=== PATIENT | female | born 1965 | race African-American/Black ===

== ENCOUNTER 2020-07-31 12:33 | Emergency (ER) | payer MEDICAID ==
[~2020-07-31] VITALS: Ht 167.6 cm; Wt 75.0 kg
[~2020-07-31 12:33] MED LIST: ATOR20TA MT; BENA1TAB16; CYAN1TAB43 PO; HYDR100T26 MT; LJ2; LOSA100T3 PO; MULT200T4 PO
[2020-07-31] MEDS ORDERED: ACETAMINOPHEN 325MG TABLET PO ONE (14:00)
[2020-07-31 14:56] VITALS: BP 158/99
== END 2020-07-31 14:58 | disposition home or self-care (01) ==
LOC: ER 12:33
DX: M79.671 Pain in right foot (principal); R07.81 Pleurodynia; I10 Essential (primary) hypertension; Z86.73 Personal history of transient ischemic attack (TIA), and cerebral infarction without residual deficits; Z79.899 Other long term (current) drug therapy; W01.0XXA Fall on same level from slipping, tripping and stumbling without subsequent striking against object, initial encounter; Y93.89 Activity, other specified; Y92.89 Other specified places as the place of occurrence of the external cause; Y99.8 Other external cause status
CPT/HCPCS: 71045; 73630; 99284

== ENCOUNTER 2022-01-25 11:41 | Emergency (ER) | payer MEDICAID ==
[~2022-01-25] VITALS: Ht 162.6 cm; Wt 80.0 kg
[~2022-01-25 11:41] MED LIST changes: +CARB-274 EACH EAR
[2022-01-25 11:54] VITALS: BP 140/117
== END 2022-01-25 15:15 | disposition home or self-care (01) ==
LOC: ER 11:41
DX: R20.2 Paresthesia of skin (principal); I10 Essential (primary) hypertension; Z85.9 Personal history of malignant neoplasm, unspecified
CPT/HCPCS: 99281

== ENCOUNTER 2024-03-30 11:47 | Emergency (ER) | payer BC, MEDICAID ==
[~2024-03-30] VITALS: Ht 154.9 cm; Wt 67.0 kg
[~2024-03-30 11:47] MED LIST changes: +HYDR100T11 MT; -HYDR100T26 MT; +LOSA-415 PO; -LOSA100T3 PO
[2024-03-30 11:55] VITALS: BP 142/79; PULSE 84; RESP 16; TEMP 98.3; O2SAT 94; O2SAT 95
== END 2024-03-30 20:00 | disposition left against medical advice (07) ==
LOC: ER 11:47
DX: R07.9 Chest pain, unspecified (principal); I10 Essential (primary) hypertension; Z86.73 Personal history of transient ischemic attack (TIA), and cerebral infarction without residual deficits; Z79.899 Other long term (current) drug therapy
CPT/HCPCS: 71045; 93005; 99283; 99285

== ENCOUNTER 2024-07-07 12:21 | Emergency (ER) | payer BC, MEDICAID ==
[~2024-07-07] VITALS: Ht 154.9 cm; Wt 67.0 kg
[2024-07-07 12:25] VITALS: O2SAT 96
[2024-07-07 12:53] VITALS: BP 151/97; PULSE 76; RESP 16; TEMP 36.8; O2SAT 95
[2024-07-07 13:09] LABS: BASOPHILS % 0.6 % (0.0-2.0); EOSINOPHILS % 1.2 % (0.0-5.0); HEMATOCRIT. 40.9 % (36.0-48.0); HEMOGLOBIN. 13.4 g/dL (12.0-16.0); LYMPHOCYTES % 35.3 % (20.0-50.0); MEAN CORPUSCULAR HEMOGLOBIN 32.4 pg (28.0-32.0); MEAN CORPUSCULAR HGB CONC 32.8 g/dL (31.0-37.0); MEAN CORPUSCULAR VOLUME 98.8 fL (81.0-99.0); MEAN PLATELET VOLUME 9.2 fl (7.4-10.4); MONOCYTES % 7.4 % (2.0-8.0); NEUTROPHILS % 55.5 % (40.0-76.0); PLATELET 140 x1000/uL (130-400); RED BLOOD CELL COUNT 4.14 mill/uL (4.2-5.4); RED CELL DISTRIBUTION WIDTH 13.2 % (11.6-14.6); WHITE BLOOD COUNT 8.6 x1000/uL (4.5-11.0)
[2024-07-07 13:16] LABS: CHLORIDE 107 mEq/L (98-107); POTASSIUM 4.5 mEq/L (3.5-5.1); SODIUM 142 mEq/L (136-145)
[2024-07-07 13:17] LABS: CARBON DIOXIDE 30 mEq/L (21-32)
[2024-07-07 13:18] LABS: CALCIUM 9.6 mg/dL (8.7-10.4)
[2024-07-07 13:22] LABS: CREATININE 0.8 mg/dL (0.6-1.0); GLUCOSE 92 mg/dL (70-105); UREA NITROGEN BLOOD < 5 mg/dL (9-23)
[2024-07-07 13:30] LABS: TROPONIN I HIGH SENSITIVITY < 4 ng/L (3.0-34)
[2024-07-07 14:17] LABS: CLARITY URINE CLEAR (CLEAR); COLOR URINE YELLOW (YELLOW); GLUCOSE URINE NEGATIVE (NEGATIVE); KETONES URINE NEGATIVE (NEGATIVE); LEUKOCYTE ESTERASE URINE NEGATIVE (NEGATIVE); NITRITE URINE NEGATIVE (NEGATIVE); OCCULT BLOOD URINE 1+ (NEGATIVE); PROTEIN URINE TRACE (NEGATIVE); UROBILINOGEN URINE 0.2 E.U./dL (0.2-1.0)
[2024-07-07 14:36] LABS: SQUAMOUS EPITHELIAL CELL URINE FEW /lpf (RARE/1+); WBC URINE 0-2 /hpf (0-2)
[2024-07-07 14:37] LABS: BACTERIA URINE NONE SEEN; RBC URINE 0-2 /hpf (0-2)
== END 2024-07-07 14:26 | disposition home or self-care (01) ==
LOC: ER 12:21
DX: R05.9 Cough, unspecified (principal); I10 Essential (primary) hypertension; Z79.899 Other long term (current) drug therapy; Z86.73 Personal history of transient ischemic attack (TIA), and cerebral infarction without residual deficits; Z98.890 Other specified postprocedural states
CPT/HCPCS: 36415; 71045; 80048; 81003; 84484; 85025; 93005; 99285